=== PATIENT | male | born 1960 | race Caucasian/White ===

== ENCOUNTER 2019-12-14 06:49 | Inpatient (IN) | payer BC ==
--- NOTE | 2019-12-14 07:31 | ED ---
General Adult HPI - General Chief complaint: Extremity Problem,Nontraumatic Stated complaint: POSSIBLE BLOOD CLOT Time Seen by Provider: 12/14/19 07:00 Source: patient, family, RN notes reviewed, old records reviewed Mode of arrival: ambulatory Limitations: no limitations - History of Present Illness Initial comments: 59-year-old male patient no pertinent past history presents ED for chief complaint of left lower extremity swelling pain. Patient also does have some chronic baseline swelling in his left lower extremity stemming from a football injury many years ago. Patient does report that he has had some erythema which is new. Patient reports that he was seen at urgent care yesterday and started on Keflex for cellulitis. Patient states that he does have a lump on the back of his thigh which is always there but he states that is somewhat bigger and more painful now. No skin changes. Denies any acute chest pain or shortness of breath. Patient did have a blood clot in 1994 in his lower extremity, he is not on any form of anticoagulation now. Patient does report that from time to time while exerting himself he does get some shortness of breath, denies any chest pain. Denies any at this time. Patient declines any sort of workup or in vestigations into that and states that he will follow-up with his primary care provider. Systemic: Pt denies fatigue, fever/chills, rash. Pt denies weakness, night sweats, weight loss. Neuro: Pt denies headache, visual disturbances, syncope or pre-syncope. HEENT: Pt denies ocular discharge or irritation, otalgia, rhinorrhea, pharyngitis or notable lymphadenopathy. Cardiopulmonary: Pt denies chest pain, SOB, heart palpitations, dyspnea on exertion. Abdominal/GI: Pt denies abdominal pain, n/v/d. : Pt denies dysuria, burning w/ urination, frequency/urgency. Denies new onset urinary or bowel incontinence. MSK: Pt denies myalgia, loss of strength or function in extremities. Neuro: Pt denies new onset weakness, paresthesias. - Related Data Allergies Allergy/AdvReac Type Severity Reaction Status Date / Time Sulfa (Sulfonamide Allergy Swelling Verified 12/14/19 06:59 Antibiotics) Review of Systems ROS Statement: Those systems with pertinent positive or pertinent negative responses have been documented in the HPI. ROS Other: All systems not noted in ROS Statement are negative. Past Medical History Additional Past Medical History / Comment(s): hypothyroid History of Any Multi-Drug Resistant Organisms: None Reported Past Surgical History: Joint Replacement, Orthopedic Surgery, Tonsillectomy Past Psychological History: No Psychological Hx Reported Smoking Status: Never smoker Past Alcohol Use History: Occasional Past Drug Use History: None Reported General Exam - General Exam Comments Initial Comments: Constitutional: NAD, AOX3, Pt has pleasant affect. HEENT: NC/AT, trachea midline, neck supple, no lymphadenopathy. Posterior pharynx non erythematous, without exudates. External ears appear normal, without discharge. Mucous membranes moist. Eyes PERRLA, EOM intact. There is no scleral icterus. No pallor noted. Cardiopulmonary: RRR, no murmurs, rubs or gallops, no JVD noted. Lungs CTAB in anterior and posterior stacy. Abdominal exam: Abdomen soft and non-distended. Abdomen non-tender to palpation in all 4 quadrants. Bowel sounds active in LLQ. No hepatosplenomegaly. No e cchymosis Neuro: CN II-XII grossly intact. No nuchal rigidity. No raccon eyes, no contreras sign, no hemotympanum. No cervical spinal tenderness. MSK: Left-sided renal lateral leg swelling, erythema or edema. Erythema is on the anterior tibial aspect. Mild amount of tenderness to posterior left thigh region. Right lower extremity nonedematous non-erythematous nontender Homans sign negative bilaterally. Sensation intact in upper and lower extremities. Full active ROM in upper and lower extremities, 5/5 stregnth. Limitations: no limitations Course Vital Signs 12/14/19 06:53 Temperature 98.5 F Pulse Rate 99 Respiratory 18 Rate Blood Pressure 160/92 O2 Sat by Pulse 95 Oximetry Medical Decision Making - Medical Decision Making 59-year-old male patient no pertinent past history presents ED for chief complaint of left lower extremity swelling pain. Patient also does have some chronic baseline swelling in his left lower extremity stemming from a football injury many years ago. Patient does report that he has had some erythema which is new. Patient reports that he was seen at urgent care yesterday and started on Keflex for cellulitis. Patient states that he does have a lump on the back of his thigh which is always there but he states that is somewhat bigger and more painful now. No skin changes. Denies any acute chest pain or shortness of breath. Patient did have a blood clot in 1994 in his lower extremity, he is not on any form of anticoagulation now. Patient does report that from time to time while exerting himself he does get some shortness of breath, denies any chest pain. Denies any at this time. Patient declines any sort of workup or investigations into that and states that he will follow-up with his primary care provider. Patient relatively stable, afebrile. Physical exam does display unilateral leg swelling. Mild erythema. Ultrasound left lower extremity displays extensive thrombus extending from the external iliac vein to the popliteal vein. Denies any CI to anticoagulation. Patient initiated on high-dose heparinization. We'll be admitted for further investigations, vascular evaluation. Case discussed with Dr. Chacon. - Lab Data Result diagrams: 12/14/19 08:25 12/14/19 08:25 Lab Results 12/14/19 12/14/19 12/14/19 Range/Units 08:25 08:25 08:25 WBC 6.8 (3.8-10.6) k/uL RBC 5.05 (4.30-5.90) m/uL Hgb 15.9 (13.0-17.5) gm/dL Hct 47.0 (39.0-53.0) % MCV 93.0 (80.0-100.0) fL MCH 31.5 (25.0-35.0) pg MCHC 33.9 (31.0-37.0) g/dL RDW 13.1 (11.5-15.5) % Plt Count 163 (150-450) k/uL Neutrophils % 71 % Lymphocytes % 16 % Monocytes % 7 % Eosinophils % 3 % Basophils % 1 % Neutrophils # 4.9 (1.3-7.7) k/uL Lymphocytes # 1.1 (1.0-4.8) k/uL Monocytes # 0.5 (0-1.0) k/uL Eosinophils # 0.2 (0-0.7) k/uL Basophils # 0.0 (0-0.2) k/uL PT 9.7 (9.0-12.0) sec INR 0.9 (<1.2) APTT 24.2 (22.0-30.0) sec Sodium 138 (137-145) mmol/L Potassium 4.3 (3.5-5.1) mmol/L Chloride 107 (98-107) mmol/L Carbon Dioxide 25 (22-30) mmol/L Anion Gap 6 mmol/L BUN 16 (9-20) mg/dL Creatinine 0.89 (0.66-1.25) mg/dL Est GFR (CKD-EPI)AfAm >90 (>60 ml/min/1.73 sqM) Est GFR (CKD-EPI)NonAf >90 (>60 ml/min/1.73 sqM) Glucose 123 H (74-99) mg/dL Calcium 9.0 (8.4-10.2) mg/dL Total Bilirubin 0.9 (0.2-1.3) mg/dL AST 69 H (17-59) U/L ALT 46 (4-49) U/L Alkaline Phosphatase 68 (38-126) U/L Total Protein 7.1 (6.3-8.2) g/dL Albumin 4.1 (3.5-5.0) g/dL Disposition Clinical Impression: Deep venous thrombosis Disposition: ADMITTED IP TO THIS HOSP Condition: Serious Is patient prescribed a controlled substance at d/c from ED?: No Referrals: Andrew Cutler MD [Primary Care Provider] - 1-2 days
--- NOTE | 2019-12-14 08:00 | US ---
EXAMINATION TYPE: US venous doppler duplex LE LT DATE OF EXAM: 12/14/2019 7:15 AM COMPARISON: NONE CLINICAL HISTORY: swelling, pain . SIDE PERFORMED: Left TECHNIQUE: The lower extremity deep venous system is examined utilizing real time linear array sonog paola with graded compression, doppler sonography and color-flow sonography. VESSELS IMAGED: External Iliac Vein (EIV) Common Femoral Vein Deep Femoral Vein Greater Saphenous Vein * Femoral Vein Popliteal Vein Small Saphenous Vein * Proximal Calf Veins-not seen due to swelling (* superficial vessels) Extensive swelling making exam technically difficult. Left Leg: Positive for DVT from the EIV through distal popliteal vein. IMPRESSION: THIS EXAMINATION IS POSITIVE FOR EXTENSIVE THROMBUS EXTENDING FROM THE EXTERNAL ILIAC VEIN THROUGH TH E POPLITEAL VEIN.
[2019-12-14] MEDS ORDERED: HEPARIN SODIUM,PORCINE 10,000 UNIT/ML 1 ML VIAL IV ONE (08:05)
[2019-12-14] MEDS ORDERED: HEPARIN SODIUM,PORCINE 5,000 UNIT/ML 1 ML VIAL IV PRN (08:05)
[2019-12-14 08:34] LABS: Basophils % (A) 1 %; Eosinophils # (A) 0.2 k/uL (0-0.7); Eosinophils % (A) 3 %; HGB 15.9 gm/dL (13.0-17.5); Lymphocytes # (A) 1.1 k/uL (1.0-4.8); Lymphocytes % (A) 16 %; MCH 31.5 pg (25.0-35.0); MCHC 33.9 g/dL (31.0-37.0); Mean Platelet Volume 7.3; Monocytes # (A) 0.5 k/uL (0-1.0); Monocytes % (A) 7 %; Neutrophils # (A) 4.9 k/uL (1.3-7.7); Neutrophils % (A) 71 %; Platelet Count 163 k/uL (150-450); RBC 5.05 m/uL (4.30-5.90); RDW 13.1 % (11.5-15.5); WBC 6.8 k/uL (3.8-10.6)
[2019-12-14 08:43] LABS: ALT 46 U/L (4-49); AST 69 U/L (17-59); African American GFR (CKD) >90 (>60 ml/min/1.73 sqM); Albumin 4.1 g/dL (3.5-5.0); Alkaline Phosphatase 68 U/L (38-126); Anion Gap 6 mmol/L; Blood Urea Nitrogen 16 mg/dL (9-20); Carbon Dioxide 25 mmol/L (22-30); Chloride 107 mmol/L (98-107); Glucose 123 mg/dL (74-99); Non-African American GFR(CKD) >90 (>60 ml/min/1.73 sqM); Potassium 4.3 mmol/L (3.5-5.1); Sodium 138 mmol/L (137-145); Total Bilirubin 0.9 mg/dL (0.2-1.3); Total Protein 7.1 g/dL (6.3-8.2)
[2019-12-14 08:45] LABS: INR 0.9 (<1.2); Partial Thromboplastin Time 24.2 sec (22.0-30.0); Prothrombin Time 9.7 sec (9.0-12.0)
[2019-12-14] MEDS ORDERED: ACETAMINOPHEN TAB 325 MG TAB PO PRN (08:56)
[2019-12-14] MEDS ORDERED: NALOXONE 0.4 MG/ML 1 ML VIAL IV PRN (08:56)
[2019-12-14] MEDS: HEPARIN SOD,PORK IN 0.45% NACL 25,000 UNIT in 0.45% NACL 1 250ML.BAG IV SCH ×2 (09:19→22:22)
[2019-12-14] MEDS: SODIUM CHLORIDE 0.9% 1,000 ML IV SCH (11:01)
--- NOTE | 2019-12-14 11:19 | P.HPIM ---
History of Present Illness H&P Date: 12/14/19 This is a 59-year-old gentleman with an underlying past medical history of hypothyroidism, basal cell cancer on the face, cellulitis, and history of DVT in the left leg. Patient presented to the ED with chief complaint of lower extremity swelling patient was seen at urgent care on the and was started on Keflex for cellulitis. He now presents to the ED with increased swelling and pain. Patient denies any shortness of breath or chest pain. Patient did have a history of a blood clot in 1994 and he is currently not been on any anticoagulation at this time. Patient denies any recent traveling or prolonged sitting actually reports being quite active walking 2-4 miles daily. Ultrasound of left leg positive for extensive thrombus extending from the iliac vein through the popliteal vein. Due to extent of DVT patient will be admitted to the hospital on IV heparin. Patient is hemodynamically stable, labs were reviewed AST was mildly elevated at 69. We'll consult Dr. Wong on the case. Review of Systems General: Patient denies fever, chills,nausea, or vomiting. HEENT: No visual changes. No eye pain. No nasal symptoms. No dysphagia.No odynophagia. No ENT pain. Cardiac: No chest pain. No palpitations. Pulmonary: No dyspnea. GI: No abdominal pain. No diarrhea. No constipation. No bowel habit changes. No melena. No hematochezia. : No dysuria.No hematuria. No hesitancy. No urgency. Musculoskeletal: Left lower extremity swelling with pain and redness Integumentary: Denies rash. Denies pruritis. Neurologic: Denies any lateralizing weakness. Denies headache. Denies numbness. Denies tingling. No seizure activity. Denies TIA or CVA. Endocrine: Denies Fatigue Heme/Onc: Denies anemia. Allergic/Immunologic: Denies allergies Constitutional: Denies chills, Denies fever Past Medical History Past Medical History: Deep Vein Thrombosis (DVT), Thyroid Disorder Additional Past Medical History / Comment(s): hypothyroid, basal cell skin CA History of Any Multi-Drug Resistant Organisms: None Reported Past Surgical History: Joint Replacement, Orthopedic Surgery, Tonsillectomy Additional Past Surgical History / Comment(s): Left TKA Past Psychological History: No Psychological Hx Reported Smoking Status: Never smoker Past Alcohol Use History: Occasional (1-2 glasses of wine a few times per week) Past Drug Use History: None Reported Medications and Allergies Home Medications Medication Instructions Recorded Confirmed Type Cephalexin [Keflex] 500 mg PO Q12HR 12/14/19 12/14/19 History Glucosam/Chuck-Msm1/C/Bc/Bosw 1 tab PO DAILY 12/14/19 12/14/19 History [Glucosamine-Chondroitin Tablet] Levothyroxine Sodium [Synthroid] 25 mcg PO DAILY 12/14/19 12/14/19 History Melatonin 5 mg PO HS PRN 12/14/19 12/14/19 History Naproxen Sodium [Aleve] 220 mg PO Q12HR PRN 12/14/19 12/14/19 History Allergies Allergy/AdvReac Type Severity Reaction Status Date / Time Sulfa (Sulfonamide Allergy Swelling Verified 12/14/19 09:17 Antibiotics) Physical Exam Vitals: Vital Signs Temp Pulse Pulse Resp BP BP Pulse Ox 12/14/19 10:32 98.6 F 84 17 188/96 94 L 12/14/19 10:19 98.8 F 83 16 150/80 96 12/14/19 06:53 98.5 F 99 18 160/92 95 Intake and Output 12/13/19 12/14/19 12/14/19 22:59 06:59 14:59 Other: Weight 127.323 kg General Appearance: Alert, cooperative, no distress, appears stated age. Neck HEENT: Supple, no lymphadenopathy, no thyroid enlargement, no carotid bruits. Lungs: Clear to auscultation without crackles or wheezes no rhonchi, no deformity. Chest Wall: Chest wall normal expansion with deep inspiration no tenderness and no deformity was found on exam, no costochondral pain or discomfort. Heart: Regular rate and rhythm, S1, S2 normal, no murmur, click or rub Abdomen: Soft, nontender, nondistended, positive bowel sounds. Extremities: Left lower extremity with +3 edema and redness noted Pulses: 2+ and symmetric. Skin: Skin color, texture, tugor normal, no rashes or lesions. Neurologic: Alert oriented x3 cranial nerves II through XII intact, no motor deficit, no abnormal balance or gait. Results CBC & Chem 7: 12/14/19 08:25 12/14/19 08:25 Labs: Abnormal Lab Results - Last 24 Hours (Table) 12/14/19 Range/Units 08:25 Glucose 123 H (74-99) mg/dL AST 69 H (17-59) U/L Thrombosis Risk Factor Assmnt - DVT/VTE Prophylaxis DVT/VTE Prophylaxis: Pharmacologic Prophylaxis ordered Assessment and Plan Plan: 1. DVT of left lower extremity. Patient will be admitted to medical floor on IV heparin protocol. Consult with vascular Dr. Wong in place. 2. Vascular cellulitis. Patient started on IV Kefzol. 3. Hypothyroid. We'll resume Synthroid 25 mcg daily 4. Acute pain related to DVT. Tylenol 3 as needed for pain. 5. DVT prophylaxis. Heparin gtt 6. GI prophylaxis. Protonix Patient will be admitted to the hospital for minimum of 2 night stay. Discharge plan: Likely home with self-care. Impression and plan of care have been directed as dictated by the signing physician. Bing Morales nurse practitioner acting as scribe for signing physician.
[2019-12-14] MEDS ORDERED: Acetaminophen-Codeine 300-30mg TAB PO PRN (11:20)
[2019-12-14] MEDS ORDERED: MELATONIN 5 MG TABLET PO PRN (11:21)
[2019-12-14] MEDS ORDERED: IBUPROFEN 800 MG TAB PO PRN (11:39)
--- NOTE | 2019-12-14 12:28 | OP ---
OPERATIVE REPORT 59-year-old gentleman who came to the ER with 3-day history of swelling of the left lower extremity. The patient went to the emergency room and had acute workup including ultrasound of the left leg. The patient has a DVT of the external iliac and popliteal. The patient has no history of shortness of breath or chest pain. The patient had these symptoms for the last 2 days. PAST MEDICAL HISTORY: Patient had a history of DVT in the left leg and he was treated for 6 months with Coumadin. Since then he had no pain or recurrence. MEDICAL HISTORY: History of hypothyroidism. No history of hypertension, coronary artery disease. No history of traveling. PAST SURGICAL HISTORY: Patient had a left total knee done about 3 years ago at [facility]. PHYSICAL EXAMINATION: Patient was seen in his room, lying comfortably in bed. NECK: Supple. Trachea central. CHEST: Clear. ABDOMEN: Soft. Femorals are palpable bilateral. Dorsal pedis is palpable bilateral. Patient has some ( ) the left lower extremity with mild cellulitis with swelling, has an increase for the last 3 days. Motor functions are normal of both feet. PLAN: The patient is on heparin, three pillow elevation and thigh-high HAYDEN hose. We will watch very closely. Follow with you. CHUCKL / IJN: [id number] /
[2019-12-15] MEDS: SODIUM CHLORIDE 0.9% 1,000 ML IV SCH ×2 (01:59→09:48)
[2019-12-15] MEDS ORDERED: LEVOTHYROXINE 25 MCG TAB PO SCH (06:30)
[2019-12-15 06:56] LABS: Basophils % (A) 1 %; Eosinophils # (A) 0.2 k/uL (0-0.7); Eosinophils % (A) 3 %; HCT 44.6 % (39.0-53.0); HGB 15.3 gm/dL (13.0-17.5); Lymphocytes # (A) 1.6 k/uL (1.0-4.8); Lymphocytes % (A) 25 %; MCH 31.9 pg (25.0-35.0); MCHC 34.2 g/dL (31.0-37.0); MCV 93.2 fL (80.0-100.0); Mean Platelet Volume 7.6; Monocytes # (A) 0.4 k/uL (0-1.0); Monocytes % (A) 7 %; Neutrophils # (A) 4.1 k/uL (1.3-7.7); Neutrophils % (A) 63 %; Platelet Count 175 k/uL (150-450); RBC 4.79 m/uL (4.30-5.90); RDW 13.3 % (11.5-15.5); WBC 6.6 k/uL (3.8-10.6)
[2019-12-15 07:11] LABS: INR 0.9 (<1.2); Partial Thromboplastin Time 68.4 sec (22.0-30.0); Prothrombin Time 9.8 sec (9.0-12.0)
[2019-12-15] MEDS: HEPARIN SOD,PORK IN 0.45% NACL 25,000 UNIT in 0.45% NACL 1 250ML.BAG IV SCH (08:40)
[2019-12-15] MEDS: APIXABAN 5 MG TAB PO SCH ×2 (08:55→18:10)
--- NOTE | 2019-12-15 10:52 | CDI ---
Documentation Clarification Form Date: 12/15/2019 10:44:09 AM From: Kristy BhardwajRezaDANE brooks, CCDS Admit Date: 12/14/2019 08:53:00 AM Patient Name: Scott Harris Visit Number: [id number] Discharge Date: ATTENTION: The Clinical Documentation Specialists (CDI) and [facility] Coding Staff appreciate your assistance in clarifying documentation. Please respond to the clarification below the line at the bottom and electronically sign. The CDI & [facility] Coding staff will review the response and follow-up if needed. Please note: Queries are made part of the Legal Health Record. If you have any questions, please contact the author of this message via ITS. Dr. Brijesh Alcantar: Patient admitted on 12/13 via [facility] with a left lower extremity DVT, presented with pain & swelling to left thigh area, also complained of some exertional SOB. Tested for COVID-19: negative per Serology Report, not documented at this time. Patient history/risk factors: Hypothyroidism, Left TKA 3 years ago at [facility], Allergic to Sulfa. Clinical Indicators: Presented to the [facility] on 12/13 as above & diagnosed with LLE cellulitis & a DVT confirmed by US LLE. Labs: COVID-19: Negative on 12/14/2019 Vital Signs 12/13: Stable, PO 95 RA - 94 RA Treatment 12/13: IV Hepain drip, IV Cefazolin. In order to capture the severity of condition, please clarify if the above treatment/clinical indicators signify: COVID-19 Suspected XX COVID-19 ruled out Other, please specify Unable to determine (Last Form Revision: October 2019) MTDD
[2019-12-15] MEDS ORDERED: IOPAMIDOL CONTRAST (ORAL USE) VIAL PO PRN (11:28)
--- NOTE | 2019-12-15 13:17 | CT ---
EXAMINATION TYPE: CT angio pelvis aorta w/Runoff DATE OF EXAM: 12/15/2019 COMPARISON: None HISTORY: 59-year-old male with pain, left leg DVT TECHNIQUE: Contiguous axial scanning of the pelvis and bilateral lower extremity runoff performed wit h IV Contrast, patient injected with 100 mL of Isovue 370. Coronal/sagittal MIP reconstructions perfo rmed. 3-D reconstructions will be generated on a dedicated independent workstation. CT DLP: 1742.4 mGycm Automated exposure control for dose reduction was used. FINDINGS: In the visualized lower abdomen and pelvis, no dilated small bowel, free fluid, or free air seen. Sma ll fatty umbilical hernia. Normal appendix. There appears to be prominent 4.9 x 2.9 cm submucosal lipoma along the proximal sigmoid colon. Sigmoi d diverticulosis and redundant sigmoid colon. No pericolonic inflammatory change seen. Prostate gland is enlarged and 6.0 cm wide. Prominent distention of the urinary bladder. Left-sided DVT better characterized on the patient's Doppler study performed yesterday. Diffuse edema tous asymmetric enlargement of the left lower extremity. Mild atherosclerotic plaque along the visualized distal abdominal aorta without aneurysm. There seems to be some nonocclusive thrombus along the left lateral wall of the visualized lower IVC. LEFT: Ectatic left common iliac artery at 1.5 cm. Left common femoral artery and profunda femoral artery are patent. Superficial femoral artery is patent. Visualized upper and lower popliteal artery are patent. The mid segment is obscured due to dense meta l hardware artifact from the patient's total knee arthroplasty. Anterior tibial artery appears patent. Peroneal artery not well seen beyond the ankle. Suspect the sc dalial out running the contrast bolus with faint runoff into the foot. Some prominent varicosities are noted especially behind the left knee. Right: The common and external iliac arteries as well as the common femoral, deep femoral, superficial femor al arteries are patent. Popliteal artery is patent. Patent trifurcation vessels. Suspect that the scanner out running the contrast bolus with faint runof f into the foot. Bones: Tricompartmental degenerative change of the right knee. Mild degenerative change at the hips. Facet a rthropathy and grade 1 retrolisthesis at L3-L4 and L4-L5. IMPRESSION: 1. KNOWN LEFT LOWER EXTREMITY DVT BETTER ASSESSED ON THE 12/13/2021 DOPPLER ULTRASOUND. SECONDARY ASYM METRIC GENERALIZED LEFT LOWER EXTREMITY EDEMA. 2. SOME NONOCCLUSIVE THROMBUS IS ALSO SEEN ALONG THE LEFT LATERAL WALL OF THE VISUALIZED LOWER IVC. 3. BORDERLINE ECTATIC LEFT COMMON ILIAC ARTERY AT 1.5 CM. 4. THE MID SEGMENT OF THE LEFT POPLITEAL ARTERY IS ENTIRELY OBSCURED BY METAL HARDWARE ARTIFACT AND I S NOT EVALUATED. HOWEVER, THERE OTHERWISE APPEARS TO BE SATISFACTORY BILATERAL ARTERIAL RUNOFF INTO T HE FOOT. 5. LARGE VARICOSITIES BEHIND THE LEFT KNEE. 6. PROSTATOMEGALY MEASURING UP TO 6.0 CM WIDE. CORRELATE WITH PSA VALUES AND PATIENT'S SYMPTOMS. 7. SIGMOID DIVERTICULOSIS AND INCIDENTAL 4.9 X 2.9 CM SUBMUCOSAL LIPOMA ALONG THE PROXIMAL SIGMOID CO KAMLESH.
--- NOTE | 2019-12-15 13:54 | P.PN ---
Subjective Progress Note Date: 12/15/19 This is a 59-year-old gentleman with an underlying past medical history of hypothyroidism, basal cell cancer on the face, cellulitis, and history of DVT in the left leg. Patient presented to the ED with chief complaint of lower extremity swelling patient was seen at urgent care on the and was started on Keflex for cellulitis. He now presents to the ED with increased swelling and pain. Patient denies any shortness of breath or chest pain. Patient did have a history of a blood clot in 1994 and he is currently not been on any anticoagulation at this time. Patient denies any recent traveling or prolonged sitting actually reports being quite active walking 2-4 miles daily. Ultrasound of left leg positive for extensive thrombus extending from the iliac vein through the popliteal vein. Due to extent of DVT patient will be admitted to the hospital on IV heparin. Patient is hemodynamically stable, labs were reviewed AST was mildly elevated at 69. We'll consult Dr. Wong on the case. 12/14: patient is currently on a heparin drip which will be transitioned over to oral eliquis. Patient has been seen this morning by Dr. Delacruz and he has ordered CTApelvis aorta with runoff. This revealed left lower extremity DVT. Secondary asymmetric generalized left lower extremity edema. Some non-occlusive thrombus seen along the left lateral wall of the visualized lower IVC. Borderline ectatic left common iliac artery at 1.5 cm. Mid segment of the left popliteal artery is entirely obstructed by metal hardware artifact and is not evaluated. Otherwise appears to be satisfactory bilateral artery runoff into the foot. Large varicosities behind the left knee. Prostatomegaly.sigmoid diverticulosis and incidental lipoma. patient has been afebrile, heart rate 78, blood pressure 163/78 and pulse ox 95% on room air. CBC normal. Objective - Vital Signs Vital signs: Vital Signs Temp 98.1 F 12/15/19 03:00 Pulse 84 12/15/19 03:00 Resp 17 12/14/19 15:00 BP 142/71 12/15/19 03:00 Pulse Ox 94 L 12/15/19 03:00 Intake & Output 12/14/19 12/15/19 12/15/19 18:59 06:59 18:59 Intake Total 169.593 183.099 141.644 Output Total 700 1600 Balance -530.407 -1416.901 141.644 Weight 127.323 kg Intake: Intake, IV Titration 169.593 183.099 141.644 Amount Heparin Sod,Pork in 0.45% 169.593 108.099 141.644 NaCl 25,000 unit In 0.45 % NaCl 1 250ml.bag @ 18 UNITS/KG/HR 22.918 mls/hr IV .[id number] [facility] Rx#: [id number] Sodium Chloride 0.9% 1, 75 000 ml @ 75 mls/hr IV . [id number] [facility] Rx#:[id number] Output: Urine 700 1600 - Exam Review of Systems General: Patient denies fever, chills,nausea, or vomiting. HEENT: No visual changes. No eye pain. No nasal symptoms. No dysphagia.No odynophagia. No ENT pain. Cardiac: No chest pain. No palpitations. Pulmonary: No dyspnea. GI: No abdominal pain. No diarrhea. No constipation. No bowel habit changes. No melena. No hematochezia. : No dysuria.No hematuria. No hesitancy. No urgency. Musculoskeletal: Left lower extremity swelling with pain and redness. Decreased edema from yesterday. Integumentary: Denies rash. Denies pruritis. Neurologic: Denies any lateralizing weakness. Denies headache. Denies numbness. Denies tingling. No seizure activity. Denies TIA or CVA. Endocrine: Denies Fatigue Heme/Onc: Denies anemia. Allergic/Immunologic: Denies allergies Constitutional: Denies chills, Denies fever Physical Examination General Appearance: Alert, cooperative, no distress, appears stated age. Neck HEENT: Supple, no lymphadenopathy, no thyroid enlargement, no carotid bruits. Lungs: Clear to auscultation without crackles or wheezes no rhonchi, no deformity. Chest Wall: Chest wall normal expansion with deep inspiration no tenderness and no deformity was found on exam, no costochondral pain or discomfort. Heart: Regular rate and rhythm, S1, S2 normal, no murmur, click or rub Abdomen: Soft, nontender, nondistended, positive bowel sounds. Extremities: Left lower extremity with +2 edema and redness noted. Teo wrap and elevation in place. Pulses: 2+ and symmetric. Skin: Skin color, texture, tugor normal, no rashes or lesions. Neurologic: Alert oriented x3 cranial nerves II through XII intact, no motor deficit, no abnormal balance or gait. - Labs CBC & Chem 7: 12/15/19 06:18 12/14/19 08:25 Labs: Abnormal Lab Results - Last 24 Hours (Table) 12/14/19 12/14/19 12/14/19 Range/Units 08:25 15:02 23:02 APTT 113.6 H* 60.2 H (22.0-30.0) sec Glucose 123 H (74-99) mg/dL AST 69 H (17-59) U/L 12/15/19 Range/Units 06:18 APTT 68.4 H (22.0-30.0) sec Glucose (74-99) mg/dL AST (17-59) U/L Assessment and Plan Plan: 1. DVT of left lower extremity. Patient will be admitted to medical floor on IV heparin protocol. Consult with vascular Dr. Wong in place. CTA as above. IV heparin transition to oral eliquis. 2. Vascular cellulitis. Patient started on IV Kefzol. 3. Hypothyroid. We'll resume Synthroid 25 mcg daily 4. Acute pain related to DVT. Tylenol 3 as needed for pain. 5. DVT prophylaxis. Oral eliquis. 6. GI prophylaxis. Protonix Discharge plan: Likely home with self-care. Impression and plan of care have been directed as dictated by the signing physician. Crystal Mcdaniel nurse practitioner acting as scribe for signing physician.
--- NOTE | 2019-12-15 13:56 | P.DS ---
Providers Date of admission: 12/14/19 08:53 Expected date of discharge: 12/15/19 Attending physician: Brijesh Alcantar Consults: 12/14/19 08:56 Consult Physician Stat Consulting Provider: González Wong Consult Reason/Comments: extensive deep venous thrombosis Do you want consulting provider notified?: Yes Primary care physician: [facility] Course: This is a 59-year-old gentleman with an underlying past medical history of hypothyroidism, basal cell cancer on the face, cellulitis, and history of DVT in the left leg. Patient presented to the ED with chief complaint of lower extremity swelling patient was seen at urgent care on the and was started on Keflex for cellulitis. He now presents to the ED with increased swelling and pain. Patient denies any shortness of breath or chest pain. Patient did have a history of a blood clot in 1994 and he is currently not been on any anticoagulation at this time. Patient denies any recent traveling or prolonged sitting actually reports being quite active walking 2-4 miles daily. Ultrasound of left leg positive for extensive thrombus extending from the iliac vein through the popliteal vein. Due to extent of DVT patient will be admitted to the hospital on IV heparin. Patient is hemodynamically stable, labs were reviewed AST was mildly elevated at 69. We'll consult Dr. Wong on the case. 12/14: patient is currently on a heparin drip which will be transitioned over to oral eliquis. Patient has been seen this morning by Dr. Delacruz and he has ordered CTA pelvis aorta with runoff. This revealed left lower extremity DVT. Secondary asymmetric generalized left lower extremity edema. Some non-occlusive thrombus seen along the left lateral wall of the visualized lower IVC. Borderline ectatic left common iliac artery at 1.5 cm. Mid segment of the left popliteal artery is entirely obstructed by metal hardware artifact and is not evaluated. Otherwise appears to be satisfactory bilateral artery runoff into the foot. Large varicosities behind the left knee. Prostatomegaly. Sigmoid diverticulosis and incidental lipoma. Patient has been afebrile, heart rate 78, blood pressure 163/78 and pulse ox 95% on room air. CBC normal. Due to extensive findings on the CAT scan, Dr. Wong recommended transfer to tertiary care center. Patient was accepted at [facility] and transferred in st able condition.-- Discharge diagnoses: 1. DVT of left lower extremity. 2. Vascular cellulitis. 3. Hypothyroid. 4. Acute pain related to DVT. 5. COVID-19 infection has been ruled out. Discharge plan: Transfer to [facility]. Impression and plan of care have been directed as dictated by the signing physician. Crystal Mcdaniel nurse practitioner acting as scribe for signing physician. Patient Condition at Discharge: Good Plan - Discharge Summary Discharge Rx Participant: No New Discharge Prescriptions: New Apixaban [Eliquis Starter Pack (for VTE)] 0 mg PO DIRECTED 30 Days #1 pack Pantoprazole Sodium [Protonix] 20 mg PO DAILY #30 tablet. Discontinued Naproxen Sodium [Aleve] 220 mg PO Q12HR PRN PRN Reason: Pain No Action Glucosam/Chuck-Msm1/C/Bc/Bosw [Glucosamine-Chondroitin Tablet] 1 tab PO DAILY Melatonin 5 mg PO HS PRN PRN Reason: SLEEP Levothyroxine Sodium [Synthroid] 25 mcg PO DAILY Cephalexin [Keflex] 500 mg PO Q12HR Discharge Medication List Cephalexin [Keflex] 500 mg PO Q12HR 12/14/19 [History] Glucosam/Chuck-Msm1/C/Bc/Bosw [Glucosamine-Chondroitin Tablet] 1 tab PO DAILY 12/14/19 [History] Levothyroxine Sodium [Synthroid] 25 mcg PO DAILY 12/14/19 [History] Melatonin 5 mg PO HS PRN 12/14/19 [History] Apixaban [Eliquis Starter Pack (for VTE)] 0 mg PO DIRECTED 30 Days #1 pack 12/15/19 [Rx] Pantoprazole Sodium [Protonix] 20 mg PO DAILY #30 tablet. 12/15/19 [Rx] Follow up Appointment(s)/Referral(s): González Wong MD [STAFF PHYSICIAN] - 12/31/19 11:30 am Andrew Cutler MD [Primary Care Provider] - 12/22/19 11:00 am Activity/Diet/Wound Care/Special Instructions: pt qualifies for discounted [id number] Case management at [facility] Discharge Disposition: OTHER INSTITUTION NOT DEFINED
--- NOTE | 2019-12-15 16:36 | CT ---
EXAMINATION TYPE: CT lower leg LT w con DATE OF EXAM: 12/15/2019 COMPARISON: CTA with runoff earlier today and left lower extremity venous ultrasound one day earlier HISTORY: Venous runoff. CT DLP: 3578.2 mGycm Automated exposure control for dose reduction was used. CONTRAST: Performed with IV Contrast, patient injected with 100 mL of Isovue 370. Three-D reconstructed images are created on an independent workstation and reviewed. FINDINGS: Upper abdomen show simple appearing thin-walled 2.6 cm cyst in the liver. Scattered calcifications th roughout the spleen consistent with old granulomatous disease. Simple appearing thin-walled cysts thr oughout upper pole of both kidneys greater in number and size in the right kidney. Small fat-containi ng umbilical hernia redemonstrated. Redemonstration of 4.9 x 3.0 cm left lower quadrant sigmoid colon ic lipoma. Diverticula are seen in the proximal sigmoid colon without diverticulitis. Enlarged prosta te gland consistent with BPH bulging on bladder base. Despite 2 attempts there is poor contrast opacification of draining venous system and lower extremiti es along without abdomen and pelvis. There is confirmation of partial occlusive thrombus in the IVC r unning roughly 9 cm in length coronal image 59 series 202 terminating near the entry point of the rig ht renal vein. This has 2 small small foci of calcification axial image 60 and coronal image 60. Ther e is additional thrombus beginning at origin of left external/internal iliac veins with complete occl usion visualized portion of the external iliac vein extending into the common femoral vein where ther e is asymmetric enlargement versus opposite right side and mild to moderate surrounding fat stranding . Thrombus below this is less obvious. There is asymmetric enlargement of a draining superficial vein likely greater saphenous vein along medial portion of the left lower extremity versus opposite right side with some varicose tortuosity just above the knee joint. Asymmetric enlargement of the left low er extremity is redemonstrated. There is redemonstration of metallic hardware from left knee arthroplasty. Persistent mild to moderat e disc space narrowing L3-L4 level. IMPRESSION: Suboptimal study with confirmation of partial occlusive thrombus in the left lateral IVC over roughly 9 cm segment. Confirmation of occluding thrombus left external iliac vein and common fem oral vein level. Deep venous Thrombus below this is difficult to confirm on this CT study. There is p robable superficial thrombophlebitis of significant great portion of the left greater saphenous vein.
[2019-12-15] MEDS ORDERED: HEPARIN SODIUM,PORCINE 5,000 UNIT/ML 1 ML VIAL IV PRN (18:07)
[2019-12-15] MEDS ORDERED: HEPARIN SOD,PORK IN 0.45% NACL 25,000 UNIT in 0.45% NACL 1 250ML.BAG IV SCH (18:15)
[2019-12-15 19:23] VITALS: BP 152/78; PULSE 82; RESP 14; TEMP 98.9
[2019-12-15 19:35] LABS: Basophils % (A) 1 %; Eosinophils # (A) 0.2 k/uL (0-0.7); Eosinophils % (A) 3 %; HCT 45.9 % (39.0-53.0); HGB 15.3 gm/dL (13.0-17.5); Lymphocytes # (A) 1.3 k/uL (1.0-4.8); Lymphocytes % (A) 20 %; MCH 31.6 pg (25.0-35.0); MCHC 33.3 g/dL (31.0-37.0); Mean Platelet Volume 7.2; Monocytes # (A) 0.5 k/uL (0-1.0); Monocytes % (A) 7 %; Neutrophils # (A) 4.4 k/uL (1.3-7.7); Neutrophils % (A) 68 %; Platelet Count 181 k/uL (150-450); RBC 4.84 m/uL (4.30-5.90); RDW 13.1 % (11.5-15.5); WBC 6.5 k/uL (3.8-10.6)
[2019-12-15 19:42] LABS: INR 0.9 (<1.2); Partial Thromboplastin Time 24.9 sec (22.0-30.0); Prothrombin Time 9.7 sec (9.0-12.0)
== END 2019-12-15 20:28 | disposition other institution (70) | DRG 300 ==
LOC: EC 06:49 → 4SSUR 08:53
PROVIDERS: ADMIT Internal Medicine Geriatric Medicine; ATTEND Internal Medicine Geriatric Medicine
DX: I82.422 Acute embolism and thrombosis of left iliac vein (principal); L03.116 Cellulitis of left lower limb; E03.9 Hypothyroidism, unspecified; I83.92 Asymptomatic varicose veins of left lower extremity; Z96.652 Presence of left artificial knee joint; D17.9 Benign lipomatous neoplasm, unspecified; I82.432 Acute embolism and thrombosis of left popliteal vein; K57.30 Diverticulosis of large intestine without perforation or abscess without bleeding; N40.0 Benign prostatic hyperplasia without lower urinary tract symptoms; Z20.828 Contact with and (suspected) exposure to other viral communicable diseases; Z90.49 Acquired absence of other specified parts of digestive tract; Z98.890 Other specified postprocedural states; Z79.890 Hormone replacement therapy; Z86.718 Personal history of other venous thrombosis and embolism; Z85.828 Personal history of other malignant neoplasm of skin; Z88.2 Allergy status to sulfonamides
CPT/HCPCS: 36415; 75635; 80053; 85025; 85610; 85730; 87635; 96365; 96376; 99285